=== PATIENT | male | born 1955 | race Caucasian/White ===

== ENCOUNTER 2020-10-21 12:54 | Emergency (ER) | payer OTHER ==
[~2020-10-21 12:54] MED LIST: ASPIRIN EC81 MG PO; ATORVASTATIN CA20 MG PO; BACTRIM DS TAB1 EACH PO; COMBIVENT RESPIM4 GM INH; DOXYCYCLINE HY100 M2 PO; FLONASE 0.05% N16 GM; GABAPENTIN600 MG PO; IBUPROFEN800 MG PO; IPRAT-ALBUT 0.5-3 ML INH; KEFLEX CAP 500500 MG PO; LISINOPRIL20 MG PO; LOPRESSOR 25 MG25 MG PO; NYSTOP60 GM TOP; PLAVIX75 MG PO; POTASSIUM20 MEQ/15 PO; PRINIVIL20 MG PO; QUETIAPINE FUMA25 MG PO; SPIRIVA HANDIH18 MCG INH; SYMBICORT 160-1 INHA INH; SYMBICORT 16010.2 GM INH; VENTOLIN HFA 66.7 GM INH; VITAMIN B-1100 MG PO
[2020-10-21 13:35] LABS: HEMOGLOBIN 15.8 gm/dl (14.0-17.5); RED BLOOD COUNT 5.05 M/UL (4.20-5.50)
[2020-10-21 14:18] LABS: BUN/CREATININE RATIO 13 (0-10)
[2020-10-21] MEDS ORDERED: BUSPIRONE HCL5 MG PO (17:20)
[2020-10-21] MEDS ORDERED: AMOXICILLIN875 MG PO (17:20)
== END 2020-10-21 17:15 | disposition home or self-care (01) ==
LOC: ER1 12:54
PROVIDERS: Physician Assistant
DX: F41.0 Panic disorder [episodic paroxysmal anxiety] (principal); R06.00 Dyspnea, unspecified; J32.9 Chronic sinusitis, unspecified; R79.1 Abnormal coagulation profile; F17.200 Nicotine dependence, unspecified, uncomplicated; J44.9 Chronic obstructive pulmonary disease, unspecified; I10 Essential (primary) hypertension; Z90.89 Acquired absence of other organs
CPT/HCPCS: 36600; 70450; 71045; 80053; 80307; 81001; 82550; 82553; 82803; 83874; 84484; 85025; 85379; 93005; 96374; 99285; J2060; Q9967

== ENCOUNTER 2021-01-27 12:12 | Inpatient (IN) | payer OTHER ==
[~2021-01-27] VITALS: Ht 175.3 cm; Wt 67.1 kg
[~2021-01-27 12:12] MED LIST changes: +AMOXICILLIN875 MG PO; +BUSPIRONE HCL5 MG PO
[2021-01-27 13:52] LABS: RED BLOOD COUNT 5.4 M/UL (4.20-5.50); WHITE BLOOD COUNT 11.1 K/UL (4.5-11.0)
[2021-01-27 14:27] LABS: BUN/CREATININE RATIO 43 (0-10)
[2021-01-28 09:34] LABS: HEMOGLOBIN 15.6 gm/dl (14.0-17.5); RED BLOOD COUNT 5.32 M/UL (4.20-5.50); WHITE BLOOD COUNT 11.6 K/UL (4.5-11.0)
[2021-01-28 11:11] LABS: BUN/CREATININE RATIO 73 (0-10)
[2021-01-29 03:29] LABS: HEMOGLOBIN 14.6 gm/dl (14.0-17.5); RED BLOOD COUNT 4.95 M/UL (4.20-5.50)
[2021-01-29 03:37] LABS: WHITE BLOOD COUNT 8.6 K/UL (4.5-11.0)
[2021-01-29 04:06] LABS: BUN/CREATININE RATIO 70 (0-10)
[2021-01-29] MEDS ORDERED: LISINOPRIL20 MG PO (09:05)
[2021-01-29] MEDS ORDERED: NEURONTIN600 MG PO (09:17)
[2021-01-30 10:21] LABS: HEMOGLOBIN 15.3 gm/dl (14.0-17.5); RED BLOOD COUNT 5.18 M/UL (4.20-5.50); WHITE BLOOD COUNT 10.7 K/UL (4.5-11.0)
[2021-01-30 11:11] LABS: BUN/CREATININE RATIO 48 (0-10)
--- NOTE | 2021-01-30 14:52 | NUR ---
20G X 10CM MIDLINE PLACED IN THE LEFT BASILIC VEIN USING ULTRASOUND. PLACEMENT WAS CHALLENGING SECONDARY TO PT MOVING ABOUT IN BED. ASPIRATES AND FLUSHES WELL.
[2021-01-31 03:24] LABS: HEMOGLOBIN 14.2 gm/dl (14.0-17.5); RED BLOOD COUNT 4.76 M/UL (4.20-5.50); WHITE BLOOD COUNT 8.1 K/UL (4.5-11.0)
[2021-01-31 04:07] LABS: BUN/CREATININE RATIO 40 (0-10)
[2021-02-01 04:40] LABS: HEMOGLOBIN 15.9 gm/dl (14.0-17.5)
--- NOTE | 2021-02-01 05:02 | NUR ---
0330 BP WAS 107/47 HR 127. AT 0400 HR 117, BP 64/39. PATIENT IS UNRESPONSIVE TO STIMULI. BLOOD SUGAR WAS CHECKED AND WAS 165. DR HERNANDEZ CALLED AT 0408 TO COME TO BED SIDE. STOCKROOM SUPERVISOR, TEE, WAS CALLED AT 0412 SUCTIONED AT 0415. RESPIRATORY CALLED TO ROOM AT 0415. MD ORDERED NS BOLUS AND LEVOPHED. MD AT BEDSIDE AT 0418. LAB CALLED FOR BMP, CBC AND CARDIACS AT 0421. BLOOD GAS AND EKG DONE AT 0424. MD DECIDEDE TO INTUBATE AT 0438. BLOOD SUGAR RECHECKED AT 0443 (168) ETOMIDATE 20 IV GIVEN AT 0445 SUCC 100 MG IV GIVEN AT 0445 LARYNGSCOPE USED. TUBE IN AT 0446; 23 AT THE LIP WITH A 7.5 ET TUBE PLACED PATIENT TAKEN TO CT BY CHARGE NURSE, HM AND RESPIRATORY. PATIENT TO ICU ROOM 2117. FAMILY CALLED AND NOTIFIED AT 0500.
[2021-02-01 05:08] LABS: BUN/CREATININE RATIO 27 (0-10)
[2021-02-01 05:20] LABS: RED BLOOD COUNT 5.32 M/UL (4.20-5.50); WHITE BLOOD COUNT 15.6 K/UL (4.5-11.0)
[2021-02-02 04:41] LABS: HEMOGLOBIN 13.7 gm/dl (14.0-17.5); RED BLOOD COUNT 4.57 M/UL (4.20-5.50); WHITE BLOOD COUNT 19.7 K/UL (4.5-11.0)
[2021-02-02 05:10] LABS: BUN/CREATININE RATIO 32 (0-10)
[2021-02-03 05:12] LABS: HEMOGLOBIN 12.2 gm/dl (14.0-17.5); RED BLOOD COUNT 4.02 M/UL (4.20-5.50); WHITE BLOOD COUNT 15.1 K/UL (4.5-11.0)
[2021-02-03 05:36] LABS: BUN/CREATININE RATIO 28 (0-10)
[2021-02-04 05:03] LABS: RED BLOOD COUNT 4.04 M/UL (4.20-5.50)
[2021-02-04 05:07] LABS: WHITE BLOOD COUNT 11.3 K/UL (4.5-11.0)
[2021-02-04 05:29] LABS: BUN/CREATININE RATIO 41 (0-10)
[2021-02-05 04:37] LABS: HEMOGLOBIN 12.5 gm/dl (14.0-17.5); RED BLOOD COUNT 4.14 M/UL (4.20-5.50); WHITE BLOOD COUNT 14.5 K/UL (4.5-11.0)
[2021-02-05 04:57] LABS: BUN/CREATININE RATIO 36 (0-10)
[2021-02-07 12:49] LABS: BUN/CREATININE RATIO 33 (0-10)
[2021-02-08 04:01] LABS: HEMOGLOBIN 12.9 gm/dl (14.0-17.5); RED BLOOD COUNT 4.14 M/UL (4.20-5.50)
[2021-02-08 04:08] LABS: WHITE BLOOD COUNT 8.2 K/UL (4.5-11.0)
[2021-02-08 04:24] LABS: BUN/CREATININE RATIO 40 (0-10)
[2021-02-09 07:13] LABS: HEMOGLOBIN 12.7 gm/dl (14.0-17.5); RED BLOOD COUNT 4.23 M/UL (4.20-5.50)
[2021-02-09 07:23] LABS: BUN/CREATININE RATIO 27 (0-10)
--- NOTE | 2021-02-09 18:55 | NUR ---
PATIENT FELL, VITAL SIGNS AND PATIENT ASSESSMENT GATHERED IMMEDIATELY. PI/SENIOR RESEARCH ASSOCIATE AND DR. GUERRERO NOTIFIED. ATTEMPTED TO CALL FAMILY, NO ANSWER. ORDERS PER MD IMPLEMENTED STAT. VITAL SIGNS OBTAINED AND CHARTED. NEW FALL ASSESSMENT COMPLETED. STRIP ALARM WAS UNDER PATIENT AND ALARMING, MYSELF AND THE HELMINTHOLOGY TEACHER ESTEPHANIATIM WERE ENTERING THE ROOM TO THE ALARM WHEN THE PATIENT FELL OFF THE BED. WE IMMEDIATELY GOT HIM UP AND BACK INTO BED, REPLACED THE STRIP ALARM UNDER HIM. PATIENT C/O HEAD PAIN AND RIGHT SHOULDER/HIP PAIN. ALL OF THIS RELAYED TO THE MD.
[2021-02-11 10:54] LABS: HEMOGLOBIN 14.1 gm/dl (14.0-17.5); RED BLOOD COUNT 4.51 M/UL (4.20-5.50); WHITE BLOOD COUNT 7.9 K/UL (4.5-11.0)
[2021-02-11 11:12] LABS: BUN/CREATININE RATIO 21 (0-10)
[2021-02-12 06:35] LABS: HEMOGLOBIN 13.5 gm/dl (14.0-17.5); RED BLOOD COUNT 4.34 M/UL (4.20-5.50); WHITE BLOOD COUNT 8.4 K/UL (4.5-11.0)
[2021-02-12 07:07] LABS: BUN/CREATININE RATIO 23 (0-10)
[2021-02-13 11:47] LABS: HEMOGLOBIN 12.6 gm/dl (14.0-17.5); RED BLOOD COUNT 4.03 M/UL (4.20-5.50); WHITE BLOOD COUNT 6.3 K/UL (4.5-11.0)
[2021-02-13 12:04] LABS: BUN/CREATININE RATIO 30 (0-10)
[2021-02-14 10:21] LABS: HEMOGLOBIN 13.3 gm/dl (14.0-17.5); RED BLOOD COUNT 4.22 M/UL (4.20-5.50); WHITE BLOOD COUNT 5.8 K/UL (4.5-11.0)
[2021-02-14 10:24] LABS: BUN/CREATININE RATIO 32 (0-10)
[2021-02-20 11:29] LABS: HEMOGLOBIN 13.6 gm/dl (14.0-17.5); RED BLOOD COUNT 4.31 M/UL (4.20-5.50); WHITE BLOOD COUNT 5.5 K/UL (4.5-11.0)
[2021-02-20 11:49] LABS: BUN/CREATININE RATIO 24 (0-10)
[2021-02-21 06:33] LABS: HEMOGLOBIN 13.4 gm/dl (14.0-17.5); RED BLOOD COUNT 4.27 M/UL (4.20-5.50); WHITE BLOOD COUNT 4.8 K/UL (4.5-11.0)
[2021-02-21 06:53] LABS: BUN/CREATININE RATIO 23 (0-10)
[2021-02-22 06:00] LABS: HEMOGLOBIN 14.3 gm/dl (14.0-17.5); RED BLOOD COUNT 4.53 M/UL (4.20-5.50); WHITE BLOOD COUNT 4.8 K/UL (4.5-11.0)
[2021-02-22 06:20] LABS: BUN/CREATININE RATIO 28 (0-10)
[2021-02-23 07:30] LABS: HEMOGLOBIN 13.3 gm/dl (14.0-17.5); RED BLOOD COUNT 4.26 M/UL (4.20-5.50)
[2021-02-23 07:47] LABS: BUN/CREATININE RATIO 23 (0-10)
--- NOTE | 2021-02-23 10:02 | NUR ---
02/23/[address] PITTMAN NOT WEARING TELE, OK TO DC R/T BEING NON COMPLIANT
[2021-02-24 12:27] LABS: HEMOGLOBIN 13.9 gm/dl (14.0-17.5); RED BLOOD COUNT 4.42 M/UL (4.20-5.50); WHITE BLOOD COUNT 5.4 K/UL (4.5-11.0)
[2021-02-24 12:32] LABS: BUN/CREATININE RATIO 23 (0-10)
[2021-02-25 05:55] LABS: HEMOGLOBIN 14.4 gm/dl (14.0-17.5); RED BLOOD COUNT 4.59 M/UL (4.20-5.50); WHITE BLOOD COUNT 5.7 K/UL (4.5-11.0)
[2021-02-25 06:31] LABS: BUN/CREATININE RATIO 22 (0-10)
[2021-02-26 06:46] LABS: HEMOGLOBIN 13.6 gm/dl (14.0-17.5); RED BLOOD COUNT 4.36 M/UL (4.20-5.50); WHITE BLOOD COUNT 5.8 K/UL (4.5-11.0)
[2021-02-26 07:13] LABS: BUN/CREATININE RATIO 18 (0-10)
[2021-02-27 06:12] LABS: HEMOGLOBIN 13.7 gm/dl (14.0-17.5); RED BLOOD COUNT 4.36 M/UL (4.20-5.50)
[2021-02-27 06:32] LABS: BUN/CREATININE RATIO 18 (0-10)
[2021-02-28 06:39] LABS: HEMOGLOBIN 14.7 gm/dl (14.0-17.5); RED BLOOD COUNT 4.65 M/UL (4.20-5.50); WHITE BLOOD COUNT 6.4 K/UL (4.5-11.0)
[2021-02-28 07:22] LABS: BUN/CREATININE RATIO 22 (0-10)
[2021-03-01 11:06] LABS: HEMOGLOBIN 14.6 gm/dl (14.0-17.5); RED BLOOD COUNT 4.77 M/UL (4.20-5.50)
[2021-03-01 11:41] LABS: BUN/CREATININE RATIO 21 (0-10)
[2021-03-02 06:40] LABS: HEMOGLOBIN 13.7 gm/dl (14.0-17.5); RED BLOOD COUNT 4.39 M/UL (4.20-5.50); WHITE BLOOD COUNT 6.9 K/UL (4.5-11.0)
[2021-03-02 07:04] LABS: BUN/CREATININE RATIO 22 (0-10)
[2021-03-03 06:08] LABS: HEMOGLOBIN 14.8 gm/dl (14.0-17.5); RED BLOOD COUNT 4.67 M/UL (4.20-5.50); WHITE BLOOD COUNT 5.7 K/UL (4.5-11.0)
[2021-03-03 06:28] LABS: BUN/CREATININE RATIO 19 (0-10)
[2021-03-04 08:51] LABS: HEMOGLOBIN 14.7 gm/dl (14.0-17.5); RED BLOOD COUNT 4.61 M/UL (4.20-5.50); WHITE BLOOD COUNT 6.5 K/UL (4.5-11.0)
[2021-03-04 09:30] LABS: BUN/CREATININE RATIO 18 (0-10)
[2021-03-05 06:21] LABS: BUN/CREATININE RATIO 20 (0-10)
[2021-03-06 12:07] LABS: HEMOGLOBIN 14.1 gm/dl (14.0-17.5); RED BLOOD COUNT 4.41 M/UL (4.20-5.50); WHITE BLOOD COUNT 6.4 K/UL (4.5-11.0)
[2021-03-06 12:29] LABS: BUN/CREATININE RATIO 20 (0-10)
[2021-03-07 11:45] LABS: BUN/CREATININE RATIO 18 (0-10)
[2021-03-11 06:59] LABS: HEMOGLOBIN 14.9 gm/dl (14.0-17.5); RED BLOOD COUNT 4.67 M/UL (4.20-5.50); WHITE BLOOD COUNT 6.5 K/UL (4.5-11.0)
[2021-03-11 08:04] LABS: BUN/CREATININE RATIO 24 (0-10)
[2021-03-12 07:32] LABS: BUN/CREATININE RATIO 25 (0-10)
[2021-03-13 07:32] LABS: HEMOGLOBIN 14.5 gm/dl (14.0-17.5); RED BLOOD COUNT 4.74 M/UL (4.20-5.50); WHITE BLOOD COUNT 7.4 K/UL (4.5-11.0)
[2021-03-13 08:05] LABS: BUN/CREATININE RATIO 23 (0-10)
[2021-03-14 09:54] LABS: HEMOGLOBIN 14.3 gm/dl (14.0-17.5); RED BLOOD COUNT 4.47 M/UL (4.20-5.50); WHITE BLOOD COUNT 7.7 K/UL (4.5-11.0)
[2021-03-14 10:26] LABS: BUN/CREATININE RATIO 25 (0-10)
--- NOTE | 2021-03-14 18:40 | NUR ---
PT SITTING IN CHAIR AT BEDSIDE, HE REFUSED HIS 1700 ACCU CHECK AND HIS LOVENOX TODAY.
[2021-03-15 07:51] LABS: RED BLOOD COUNT 4.52 M/UL (4.20-5.50); WHITE BLOOD COUNT 7.7 K/UL (4.5-11.0)
[2021-03-15 08:17] LABS: BUN/CREATININE RATIO 25 (0-10)
[2021-03-15] MEDS ORDERED: LOPRESSOR 50 MG50 MG PO (10:50)
[2021-03-15] MEDS ORDERED: PROTONIX 40 MG40 M1 PO (10:50)
[2021-03-15] MEDS ORDERED: ASPIRIN81 MG PO (10:50)
[2021-03-15] MEDS ORDERED: IPRAT-ALBUT 0.5-3 ML NEB (10:50)
[2021-03-15] MEDS ORDERED: BUDESONIDE0.5 MG/2 M NEB (10:50)
[2021-03-15] MEDS ORDERED: VITAMIN B-1100 M1 PO (10:50)
[2021-03-15] MEDS ORDERED: FOLIC ACID 1 MG1 MG PO (10:50)
[2021-03-15] MEDS ORDERED: PROVENTIL HFA6.7 GM INH (10:54)
[2021-03-15] MEDS ORDERED: MELATONIN3 MG PO (10:54)
== END 2021-03-15 16:37 | disposition home or self-care (01) | DRG 208 ==
LOC: ER1 12:12 → CDU 15:20 → MED SURG 4 15:20 → PROG CARE 15:20 → CCU 15:20 → PROG CARE 01-28 13:07 → CCU 02-01 05:00 → MED SURG 4 02-07 15:27
PROVIDERS: Emergency Medicine; Internal Medicine; Internal Medicine Pulmonary Disease; Surgery; ADMIT Internal Medicine
PROC: 3E0333Z Introduction of Anti-inflammatory into Peripheral Vein, Percutaneous Approach (ICD-10-PCS; 2021-01-27)
PROC: 5A1945Z Respiratory Ventilation, 24-96 Consecutive Hours (ICD-10-PCS; principal; 2021-02-01)
PROC: 0BH17EZ Insertion of Endotracheal Airway into Trachea, Via Natural or Artificial Opening (ICD-10-PCS; 2021-02-01)
PROC: 3E0G76Z Introduction of Nutritional Substance into Upper GI, Via Natural or Artificial Opening (ICD-10-PCS; 2021-02-01)
PROC: 0DH63UZ Insertion of Feeding Device into Stomach, Percutaneous Approach (ICD-10-PCS; 2021-02-01)
PROC: 02HV33Z Insertion of Infusion Device into Superior Vena Cava, Percutaneous Approach (ICD-10-PCS; 2021-02-01)
PROC: B548ZZA Ultrasonography of Superior Vena Cava, Guidance (ICD-10-PCS; 2021-02-01)
PROC: 8E0ZXY6 Isolation (ICD-10-PCS; 2021-02-01)
DX: U07.1 COVID-19 (principal); J12.82 Pneumonia due to coronavirus disease 2019; A41.89 Other specified sepsis; J80 Acute respiratory distress syndrome; G92.8 Other toxic encephalopathy; J15.212 Pneumonia due to Methicillin resistant Staphylococcus aureus; R65.20 Severe sepsis without septic shock; F19.139 Other psychoactive substance abuse with withdrawal, unspecified; F10.139 Alcohol abuse with withdrawal, unspecified; N17.9 Acute kidney failure, unspecified; E87.4 Mixed disorder of acid-base balance; E87.0 Hyperosmolality and hypernatremia; E87.1 Hypo-osmolality and hyponatremia; E46 Unspecified protein-calorie malnutrition; J44.0 Chronic obstructive pulmonary disease with (acute) lower respiratory infection; E86.9 Volume depletion, unspecified; L89.152 Pressure ulcer of sacral region, stage 2; G31.2 Degeneration of nervous system due to alcohol; T79.6XXA Traumatic ischemia of muscle, initial encounter; W18.30XA Fall on same level, unspecified, initial encounter; I10 Essential (primary) hypertension; E86.0 Dehydration; F03.90 Unspecified dementia, unspecified severity, without behavioral disturbance, psychotic disturbance, mood disturbance, and anxiety; L89.326 Pressure-induced deep tissue damage of left buttock; L89.316 Pressure-induced deep tissue damage of right buttock; Z88.8 Allergy status to other drugs, medicaments and biological substances; Z91.14 Patient's other noncompliance with medication regimen; Z86.73 Personal history of transient ischemic attack (TIA), and cerebral infarction without residual deficits; Z68.21 Body mass index [BMI] 21.0-21.9, adult; Z90.49 Acquired absence of other specified parts of digestive tract
CPT/HCPCS: 31500; 36415; 36600; 70450; 70496; 70498; 71045; 73030; 73502; 80048; 80053; 80202; 80307; 82140; 82550; 82553; 82728; 82803; 82962; 83036; 83605; 83615; 83735; 83874; 83880; 84100; 84132; 84484; 85025; 85027; 85379; 85384; 86140; 87040; 87070; 87077; 87081; 87186; 87205; 92526; 92610; 93005; 93970; 94002; 94003; 94640; 94664; 94760; 94762; 96374; 97110; 97110-GP-CQ; 97116-GP-CQ; 97162; 97164; 97167; 97530; 97530-GP-CQ; 99285; A6212; C1751; C9113; J0360; J0456; J0696; J1100; J1630; J1644; J1650; J1956; J2060; J2405; J2543; J2704; J3370; J7030; J7040; J7070; Q9967; U0002

== ENCOUNTER 2021-04-09 17:40 | Emergency (ER) | payer OTHER ==
[~2021-04-09 17:40] MED LIST changes: +ASPIRIN81 MG PO; +BUDESONIDE0.5 MG/2 M NEB; +FOLIC ACID 1 MG1 MG PO; +IPRAT-ALBUT 0.5-3 ML NEB; +LOPRESSOR 50 MG50 MG PO; +MELATONIN3 MG PO; +NEURONTIN600 MG PO; +PROTONIX 40 MG40 M1 PO; +PROVENTIL HFA6.7 GM INH; +VITAMIN B-1100 M1 PO
[2021-04-09 19:42] LABS: HEMOGLOBIN 14.4 gm/dl (14.0-17.5); RED BLOOD COUNT 4.67 M/UL (4.20-5.50); WHITE BLOOD COUNT 7.4 K/UL (4.5-11.0)
[2021-04-09 19:57] LABS: BUN/CREATININE RATIO 18 (0-10)
[2021-04-09] MEDS ORDERED: LISINOPRIL20 MG PO (21:02)
== END 2021-04-09 21:15 | disposition home or self-care (01) ==
LOC: ER1 17:40
PROVIDERS: Student in an Organized Health Care Education/Training Program
DX: I10 Essential (primary) hypertension (principal); Z76.0 Encounter for issue of repeat prescription; Z90.89 Acquired absence of other organs; F17.210 Nicotine dependence, cigarettes, uncomplicated; Z79.899 Other long term (current) drug therapy
CPT/HCPCS: 71045; 80053; 82550; 82553; 83874; 84484; 85025; 93005; 99284

== ENCOUNTER 2021-06-14 13:13 | Inpatient (IN) | payer OTHER ==
[~2021-06-14] VITALS: Ht 175.3 cm; Wt 61.3 kg
[2021-06-14 14:41] LABS: BUN/CREATININE RATIO 26 (0-10)
[2021-06-14 14:56] LABS: HEMOGLOBIN 12.7 gm/dl (14.0-17.5); RED BLOOD COUNT 4.52 M/UL (4.20-5.50); WHITE BLOOD COUNT 19.5 K/UL (4.5-11.0)
[2021-06-15 03:34] LABS: HEMOGLOBIN 10.8 gm/dl (14.0-17.5)
[2021-06-15 03:36] LABS: RED BLOOD COUNT 3.83 M/UL (4.20-5.50); WHITE BLOOD COUNT 8.6 K/UL (4.5-11.0)
[2021-06-15 03:58] LABS: BUN/CREATININE RATIO 23 (0-10)
[2021-06-15] MEDS ORDERED: BEVESPI AEROS10.7 GM INH (10:23)
[2021-06-16 03:00] LABS: HEMOGLOBIN 9.6 gm/dl (14.0-17.5); RED BLOOD COUNT 3.46 M/UL (4.20-5.50)
[2021-06-16 03:03] LABS: WHITE BLOOD COUNT 5.8 K/UL (4.5-11.0)
[2021-06-16 03:23] LABS: BUN/CREATININE RATIO 27 (0-10)
[2021-06-17 03:48] LABS: RED BLOOD COUNT 3.56 M/UL (4.20-5.50); WHITE BLOOD COUNT 6.6 K/UL (4.5-11.0)
[2021-06-17 04:01] LABS: BUN/CREATININE RATIO 25 (0-10)
[2021-06-19 03:23] LABS: HEMOGLOBIN 10.7 gm/dl (14.0-17.5); RED BLOOD COUNT 3.83 M/UL (4.20-5.50)
[2021-06-19 03:28] LABS: WHITE BLOOD COUNT 8.4 K/UL (4.5-11.0)
[2021-06-19 03:39] LABS: BUN/CREATININE RATIO 34 (0-10)
[2021-06-20 01:12] LABS: BODY FLUID SOURCE PLEURAL; MONONUCLEAR CELLS 6.5 (75-100); POLYMORPHONUCLEAR % 93.5 (0-25); RBC (AUTOMATED) 996900 (0-100000); WBC (AUTOMATED) 30027 (0-500)
[2021-06-20 02:45] LABS: TOTAL PROTEIN, BODY FLUID 0.8 gm/dL
[2021-06-20 02:46] LABS: LDH, BODY FLUID 165 U/L
[2021-06-20 03:04] LABS: HEMOGLOBIN 12.4 gm/dl (14.0-17.5); WHITE BLOOD COUNT 6.8 K/UL (4.5-11.0)
[2021-06-20 03:10] LABS: RED BLOOD COUNT 4.42 M/UL (4.20-5.50)
[2021-06-20 03:44] LABS: BUN/CREATININE RATIO 40 (0-10)
[2021-06-20] MEDS ORDERED: VITAMIN B-1100 M1 PO (09:34)
[2021-06-20] MEDS ORDERED: TAB-A-VITE TA400 MC1 PO (09:34)
[2021-06-20] MEDS ORDERED: LOPRESSOR 25 MG25 MG PO (09:34)
== END 2021-06-20 17:31 | disposition short-term general hospital (02) | DRG 177 ==
LOC: ER1 13:13 → PROG CARE 16:04 → CDU 16:04 → PROG CARE 19:03
PROVIDERS: Emergency Medicine; Internal Medicine; Physician Assistant Medical; ADMIT Internal Medicine Infectious Disease
PROC: 5A0945A Assistance with Respiratory Ventilation, 24-96 Consecutive Hours, High Flow/Velocity Cannula (ICD-10-PCS; 2021-06-14)
PROC: 5A0945A Assistance with Respiratory Ventilation, 24-96 Consecutive Hours, High Flow/Velocity Cannula (ICD-10-PCS; 2021-06-17)
PROC: 0W9930Z Drainage of Right Pleural Cavity with Drainage Device, Percutaneous Approach (ICD-10-PCS; principal; 2021-06-19)
DX: J69.0 Pneumonitis due to inhalation of food and vomit (principal); J96.21 Acute and chronic respiratory failure with hypoxia; J86.9 Pyothorax without fistula; J93.82 Other air leak; J98.11 Atelectasis; J90 Pleural effusion, not elsewhere classified; J44.1 Chronic obstructive pulmonary disease with (acute) exacerbation; I96 Gangrene, not elsewhere classified; Z20.822 Contact with and (suspected) exposure to COVID-19; F10.10 Alcohol abuse, uncomplicated; F17.200 Nicotine dependence, unspecified, uncomplicated; L89.896 Pressure-induced deep tissue damage of other site; L89.312 Pressure ulcer of right buttock, stage 2; L89.222 Pressure ulcer of left hip, stage 2; R53.81 Other malaise; L89.626 Pressure-induced deep tissue damage of left heel; R00.0 Tachycardia, unspecified; I10 Essential (primary) hypertension; Z79.899 Other long term (current) drug therapy; Z98.890 Other specified postprocedural states; Z86.73 Personal history of transient ischemic attack (TIA), and cerebral infarction without residual deficits; Z88.8 Allergy status to other drugs, medicaments and biological substances; Z82.0 Family history of epilepsy and other diseases of the nervous system; Z83.3 Family history of diabetes mellitus; Z83.79 Family history of other diseases of the digestive system; Z79.82 Long term (current) use of aspirin
CPT/HCPCS: 0240U; 36415; 36600; 71045; 71250; 80048; 80053; 82550; 82553; 82803; 82805; 82945; 83605; 83615; 83690; 83735; 83874; 83880; 83986; 84100; 84157; 84439; 84443; 84484; 85025; 85027; 85610; 85730; 86140; 87040; 87070; 87077; 87186; 87205; 88341; 89051; 93005; 94640; 94645; 94664; 94760; 96374; 96375; 97110; 97110-GP-CQ; 97116-GP-CQ; 97162; 97166; 97530-GP-CQ; 99285; A6212; J0696; J1100; J1650; J2060; J2185; J2270; J2543; J3370; J3411; J3475; J7030; J7070

== ENCOUNTER 2021-09-03 13:56 | Observation (INO) | payer OTHER ==
[~2021-09-03] VITALS: Ht 172.7 cm; Wt 77.1 kg
[~2021-09-03 13:56] MED LIST changes: +BEVESPI AEROS10.7 GM INH; -NEURONTIN600 MG PO; +TAB-A-VITE TA400 MC1 PO
[2021-09-03 15:47] LABS: HEMOGLOBIN 13.9 gm/dl (14.0-17.5); RED BLOOD COUNT 4.67 M/UL (4.20-5.50); WHITE BLOOD COUNT 12.5 K/UL (4.5-11.0)
[2021-09-03 15:55] LABS: BUN/CREATININE RATIO 18 (0-10)
[2021-09-06 01:55] LABS: HEMOGLOBIN 12.6 gm/dl (14.0-17.5); RED BLOOD COUNT 4.28 M/UL (4.20-5.50)
[2021-09-06 02:02] LABS: WHITE BLOOD COUNT 6.4 K/UL (4.5-11.0)
[2021-09-06 02:56] LABS: BUN/CREATININE RATIO 32 (0-10)
[2021-09-06] MEDS ORDERED: NEURONTIN600 MG PO (09:17)
[2021-09-06] MEDS ORDERED: LISINOPRIL20 MG PO (12:06)
[2021-09-06] MEDS ORDERED: SEROQUEL25 MG PO (12:07)
[2021-09-06] MEDS ORDERED: IPRAT-ALBUT 0.5-3 ML INH (12:10)
[2021-09-06] MEDS ORDERED: ASPIRIN EC81 MG PO (12:58)
[2021-09-06] MEDS ORDERED: METOPROLOL SUCC25 MG PO (13:08)
[2021-09-07 06:06] LABS: HEMOGLOBIN 14.3 gm/dl (14.0-17.5); WHITE BLOOD COUNT 5.7 K/UL (4.5-11.0)
[2021-09-07 06:17] LABS: RED BLOOD COUNT 4.82 M/UL (4.20-5.50)
[2021-09-07 06:42] LABS: BUN/CREATININE RATIO 24 (0-10)
[2021-09-08 06:23] LABS: BUN/CREATININE RATIO 25 (0-10)
[2021-09-12 08:30] LABS: HEMOGLOBIN 12.8 gm/dl (14.0-17.5); RED BLOOD COUNT 4.37 M/UL (4.20-5.50); WHITE BLOOD COUNT 8.9 K/UL (4.5-11.0)
[2021-09-12 08:52] LABS: BUN/CREATININE RATIO 29 (0-10)
[2021-09-14] MEDS ORDERED: LIPITOR40 MG PO (12:08)
== END 2021-09-14 14:22 | disposition other institution (70) ==
LOC: ER1 13:56 → MED SURG 4 09-06 09:20 → CDU 09-06 09:20 → MED SURG 4 09-06 10:45
PROVIDERS: Emergency Medicine; Internal Medicine; Physician Assistant; ADMIT Internal Medicine Infectious Disease
DX: I16.0 Hypertensive urgency (principal); Z20.822 Contact with and (suspected) exposure to COVID-19; I10 Essential (primary) hypertension; J44.9 Chronic obstructive pulmonary disease, unspecified; F17.210 Nicotine dependence, cigarettes, uncomplicated; F10.10 Alcohol abuse, uncomplicated; Z79.82 Long term (current) use of aspirin; Z79.899 Other long term (current) drug therapy; Z86.73 Personal history of transient ischemic attack (TIA), and cerebral infarction without residual deficits; Z88.8 Allergy status to other drugs, medicaments and biological substances; Y90.9 Presence of alcohol in blood, level not specified
CPT/HCPCS: 36415; 71045; 80048; 80053; 81001; 82550; 82553; 83605; 83735; 84100; 84484; 85025; 87040; 93005; 94640; 94760; 96374; 97110; 97110-GP-CQ; 97116; 97116-GP-CQ; 97162; 97166; 97530; 97530-GP-CQ; 97535; 99285; G0378; J0360; U0002